=== PATIENT | male | born 1960 | race Caucasian/White ===

== ENCOUNTER 2018-03-11 11:32 | Emergency (ER) | payer OTHER ==
[2018-03-11 11:36] VITALS: BP 187/90; PULSE 90; RESP 20; TEMP 98
[2018-03-11] MEDS ORDERED: IBUPROFEN 600 MG STARTER PACK 4 TAB BTL PO STA (11:51)
[2018-03-11] MEDS ORDERED: PENICILLIN VK 500MG STARTER 4 TAB BTL PO STA (11:51)
--- NOTE | 2018-03-11 11:56 | ED ---
ENT HPI - General Chief complaint: Dental/Oral Stated complaint: Abcess tooth Time Seen by Provider: 03/11/18 11:42 Source: patient, RN notes reviewed Mode of arrival: ambulatory Limitations: no limitations - History of Present Illness Initial comments: 57-year-old male presents emergency Department chief complaint dental pain. Patient states started yesterday worse today. Patient states his poor dentition he did call Dr. Carreno's office who recommended to come emergency department. Patient has left upper dental pain and swelling states is very mild pain. He did take some old amoxicillin yesterday. Patient has NO KNOWN DRUG ALLERGIES. Denies any difficulty swallowing denies headache, dizziness, chest pain or shortness breath. - Related Data Previous Rx's Medication Instructions Recorded Ibuprofen [Motrin] 600 mg PO Q8HR PRN #30 tab 03/11/18 Penicillin V Potassium [Pen Vee K] 500 mg PO QID #40 tablet 03/11/18 Allergies Allergy/AdvReac Type Severity Reaction Status Date / Time No Known Allergies Allergy Verified 03/11/18 11:36 Review of Systems ROS Statement: Those systems with pertinent positive or pertinent negative responses have been documented in the HPI. ROS Other: All systems not noted in ROS Statement are negative. Past Medical History Past Medical History: No Reported History History of Any Multi-Drug Resistant Organisms: None Reported Past Surgical History: No Surgical Hx Reported Past Psychological History: No Psychological Hx Reported Smoking Status: Current every day smoker Past Alcohol Use History: Occasional Past Drug Use History: None Reported General Exam Limitations: no limitations General appearance: alert, in no apparent distress Head exam: Present: atraumatic, normocephalic, normal inspection Eye exam: Present: normal appearance, PERRL, EOMI. Absent: scleral icterus, conjunctival injection, periorbital swelling ENT exam: Present: mucous membranes moist. Absent: normal exam, normal oropharynx (Patient is edentulous, there is a dental erosion left upper no obvious abscess there is mild swelling of the left cheek region) Neck exam: Present: normal inspection, full ROM. Absent: tenderness, meningismus, lymphadenopathy Respiratory exam: Present: normal lung sounds bilaterally. Absent: respiratory distress, wheezes, rales, rhonchi, stridor Cardiovascular Exam: Present: regular rate, normal rhythm, normal heart sounds. Absent: systolic murmur, diastolic murmur, rubs, gallop, clicks Course Vital Signs 03/11/18 11:34 Temperature 98.0 F Pulse Rate 90 Respiratory 20 Rate Blood Pressure 187/90 O2 Sat by Pulse 98 Oximetry Medical Decision Making - Medical Decision Making 57-year-old male presented for chief complaint of dental pain. Patient does have some swelling concern for early dental abscess. Patient we started Pen- Vee K, ibuprofen. Patient will follow-up with oral surgeon tomorrow and return for any worsening symptoms. Disposition Clinical Impression: Dental abscess Disposition: HOME SELF-CARE Condition: Stable Instructions: Dental Abscess (ED) Additional Instructions: Please return to the Emergency Department if symptoms worsen or any other concerns. Prescriptions: Ibuprofen [Motrin] 600 mg PO Q8HR PRN #30 tab PRN Reason: Pain Penicillin V Potassium [Pen Vee K] 500 mg PO QID #40 tablet Is patient prescribed a controlled substance at d/c from ED?: No Referrals: None,Stated [Primary Care Provider] - 1-2 days Grupo Carreno DDS [STAFF PHYSICIAN] - 1-2 days
== END 2018-03-11 12:14 | disposition home or self-care (01) ==
LOC: EC 11:32
DX: K04.7 Periapical abscess without sinus (principal); F17.200 Nicotine dependence, unspecified, uncomplicated
CPT/HCPCS: 99282